=== PATIENT | female | born 1965 | race Caucasian/White ===

== ENCOUNTER → 2017-09-17 10:52 | Outpatient (CLI) | payer OTHER, SELFPAY ==
[2017-09-17 11:50] LABS: Mean Corpuscular HGB Conc 33.4 % (30-36); Mean Corpuscular Hemoglobin 27.8 PG (26-34); Mean Corpuscular Volume 83.2 fL (80-100); Platelet Count 312 X10^3/uL (150-400); Red Blood Cell Count 4.32 X10^6/uL (4.0-5.2); Red Cell Distribution Width 13.9 % (11.6-14.8); White Blood Cell Count 7.2 X10^3/uL (4.5-11.0)
[2017-09-17 12:09] LABS: Erythrocyte Sedimentation Rate 58 MM/HR (0-20)
[2017-09-17 12:13] LABS: Neutrophils Absolute Manual 4968 /uL (3000-5900); Total Cells Counted 100
[2017-09-17 12:14] LABS: Morphology Comment Normal Morphology
[2017-09-17 12:24] LABS: Alanine Aminotransferase 30 IU/L (9-52); Albumin 4.4 g/dL (3.5-5.0); Albumin Globulin Ratio 1.3 (1.0-2.8); Alkaline Phosphatase 73 U/L (38-126); Aspartate Aminotransferase 22 IU/L (14-36); BUN Creatinine Ratio 23.3 (6-22); Bilirubin Total 0.5 mg/dL (0.2-1.3); Blood Urea Nitrogen 14 mg/dL (7-17); Calcium 9.4 mg/dL (8.4-10.2); Carbon Dioxide 27 mmol/L (22-32); Chloride 102 mmol/L (98-107); Estimated Glomerular Filt Rate > 60.0 mL/min (>60); Globulin 3.5 g/dL (1.7-4.1); Glucose 97 mg/dL (70-100); HEMOLYSIS < 15 (0-50); Potassium 4.3 mmol/L (3.4-5.1); Sodium 143 mmol/L (137-145); Total Protein 7.9 g/dL (6.3-8.2); Uric Acid 4.4 mg/dL (2.5-6.2)
[2017-09-17 12:26] LABS: C-Reactive Protein Quant 2.4 mg/dL (<1.0)
[2017-09-17 12:29] LABS: Rheumatoid Factor < 8.6 IU/mL (<12.0)
[2017-09-17 12:54] LABS: Thyroid Stimulating Hormone 0.77 uIU/mL (0.47-4.68)
[2017-09-19 13:59] LABS: Lyme SCREEN w/ Reflex IgG IgM < 0.90 (< 0.90)
== END ==
PROVIDERS: PCP Family Medicine; Visit Provider Physician Assistant
DX: R23.8 Other skin changes (principal); R63.5 Abnormal weight gain; M06.9 Rheumatoid arthritis, unspecified; L08.9 Local infection of the skin and subcutaneous tissue, unspecified; S60.529A Blister (nonthermal) of unspecified hand, initial encounter
CPT/HCPCS: 36415; 80053; 84443; 84481; 84550; 85025; 85651; 86140; 86430; 86618; 87070; 87075; 87205; 87255

== ENCOUNTER 2017-11-19 12:46 | Emergency (ER) | payer OTHER, SELFPAY ==
[2017-11-19 12:50] VITALS: BP 133/88; PULSE 82; RESP 13; TEMP 37.2; O2SAT 99
--- NOTE | 2017-11-19 14:24 | DI.US.S_ITS ---
PROCEDURE: US PERIPH VENOUS LOW EXTREM RT INDICATIONS: RIGHT KNEE PAIN TECHNIQUE: Real-time imaging, as well as color and pulse Doppler interrogation, were performed of the lower extremity deep veins from the inguinal ligament to the popliteal fossa. COMPARISON: None. FINDINGS: The deep veins are normally compressible, and free of intraluminal thrombus. Color and pulse Doppler demonstrate normal phasic intraluminal flow. There is normal augmentation response to distal compression maneuver. IMPRESSION: No DVT found. Note is made of what appears to be a Pleitez's cyst in the posterior knee measuring up to 5.7 x 2.7 x 2.0 cm. Dictated by: Carl Lopez M.D. on 11/19/2017 at 15:10 Approved by: Carl Lopez M.D. on 11/19/2017 at 15:10
[2017-11-19 14:37] VITALS: BP 121/84; PULSE 84; RESP 20; O2SAT 100
--- NOTE | 2017-11-19 15:08 | ED.LOWEXIN ---
HPI - Extremity Injury (Lower) <JOAQUIM Zaragoza - Last Filed: 11/19/17 22:09> General Chief Complaint: Extremity Injury, Lower Stated Complaint: RIGHT KNEE PAIN,THINKS SHE HAS A BLOOD CLOT Time Seen by Provider: 11/19/17 15:07 Source: patient Mode of arrival: wheelchair Limitations: no limitations History of Present Illness HPI Narrative: 52-year-old female history of having a pulmonary embolus and a former smoker here for complaint of pain into her right knee over the past day. She denies any trauma to the area. She reports increased pain with movement of the right knee. She states that she fell asleep on her chair and woke up with the pain. Decreased pain with not moving of the right knee. She denies any other concerns or complaints at this time. She states that she is concerned about having a blood clot MD complaint: knee injury Related Data Home Medications Medication Instructions Recorded Confirmed ibuprofen [Advil] 200 mg PO PRN #0 10/03/16 10/02/17 buprenorphine HCl 8 mg sublingual 8 mg SL QID tab 07/24/17 11/19/17 tablet Allergies Allergy/AdvReac Type Severity Reaction Status Date / Time pregabalin [PREGABALIN] Allergy Severe BLOOD CLOT Verified 10/23/17 10:55 IN LUNG AND LEG Review of Systems <JOAQUIM Zaragoza - Last Filed: 11/19/17 22:09> Constitutional Denies chills, Denies fever(s), Denies lethargy and Denies weakness Eyes Denies change in vision, Denies eye discharge, Denies irritation and Denies loss of vision Cardiovascular Denies chest pain, Denies irregular heart rhythm, Denies lightheadedness, Denies palpitations, Denies dyspnea, Denies dyspnea on exertion and Denies orthopnea Respiratory Denies cough, Denies dyspnea, Denies dyspnea on exertion and Denies wheezing Gastrointestinal Gastrointestinal: Denies abdominal pain, Denies change in bowel habits, Denies diarrhea, Denies nausea and Denies vomiting Genitourinary Denies hematuria, Denies flank pain, Denies urinary incontinence and Denies urinary urgency Musculoskeletal Comments: Right knee pain Integumentary/Breasts Denies pruritus, Denies erythema, Denies rash and Denies wounds Neurologic Denies loss of vision and Denies weakness Endocrine Denies palpitations Allergic/Immunologic Denies wheezing Exam <JOAQUIM Zaragoza - Last Filed: 11/19/17 22:09> Initial Vital Signs Initial Vital Signs: Vital Signs Temperature 99 F 11/19/17 12:50 Pulse Rate 82 11/19/17 12:50 Respiratory Rate 13 11/19/17 12:50 Blood Pressure 133/88 H 11/19/17 12:50 Pulse Oximetry 99 11/19/17 12:50 Const General: cooperative and well developed Nutritional Appearance: well nourished Orientation: alert, awake, oriented x3 and not confused [facility] Mouth: oral mucosae normal and moist mucous membranes Eyes Conjunctivae: conjunctivae normal Sclera: sclerae normal Pupils: PERRL EOM: EOM intact bilaterally Resp Effort & Inspection: normal respiratory effort, able to speak in complete sentences, no respiratory distress and no use of accessory muscles Auscultation: clear to auscultation bilaterally, no rales, no rhonchi and no wheezes Cardio Rate: regular rate Rhythm: regular rhythm Heart Sounds: no click, no gallops, no murmurs and no rubs Pulses: normal peripheral pulses Skin General: no rashes or lesions noted, No jaundice and No petechiae Neuro General: alert, oriented x3, gait normal and no focal motor deficits Speech: speech normal Extrem Other: Right knee with no deformities. No erythema. No swelling. No signs of trauma. Patient does have range of motion to the right knee although it is painful with flexion. Negative anterior posterior drawer sign. Negative varus and valgus stress test. Distal sensation is intact. Distal range of motion is intact. Distal pulses are intact <Bety Winters DO - Last Filed: 11/20/17 11:24> Initial Vital Signs Initial Vital Signs: Vital Signs Temperature 99 F 11/19/17 12:50 Pulse Rate 82 11/19/17 12:50 Respiratory Rate 13 11/19/17 12:50 Blood Pressure 133/88 H 11/19/17 12:50 Pulse Oximetry 99 11/19/17 12:50 Course <JOAQUIM Zaragoza - Last Filed: 11/19/17 22:09> Orders Ordered: Discontinued Medications Ibuprofen (Advil) 400 mg PO NOW ONE Stop: 11/19/17 15:57 Last Admin: 11/19/17 16:01 Dose: 400 mg Vital Signs - 8 hr 11/19/17 14:37 11/19/17 17:22 Pulse Rate 84 78 Respiratory Rate 20 20 Blood Pressure 153/84 H Blood Pressure [Right Arm] 121/84 H Pulse Oximetry 100 98 <Bety Winters DO - Last Filed: 11/20/17 11:24> Orders Ordered: Discontinued Medications Ibuprofen (Advil) 400 mg PO NOW ONE Stop: 11/19/17 15:57 Last Admin: 11/19/17 16:01 Dose: 400 mg Vital Signs - 8 hr 11/19/17 14:37 11/19/17 17:22 Pulse Rate 84 78 Respiratory Rate 20 20 Blood Pressure 153/84 H Blood Pressure [Right Arm] 121/84 H Pulse Oximetry 100 98 MDM - Extremity Injury (Lower) <JOAQUIM Zaragoza - Last Filed: 11/19/17 22:09> Imaging Data Right knee: Radiologist's impression: [address] [address] XRay Report Signed Patient: Ines Martinez MR#: [id number] : 1965 Acct:[id number] Age/Sex: 52 / F Date of Service: 11/19/17 Loc: ED Accession Number: [id number] Procedure: XR knee RT 3V Ordering Provider: Mitch Trinidad PROCEDURE: XR KNEE RT 3V INDICATIONS: Pain with motion of right knee TECHNIQUE: 3 views of the knee were acquired. COMPARISON: None. FINDINGS: Bones: No fractures or dislocations but there is mild subluxation of the patella laterally, at the trochlear groove.. No suspicious bony lesions. Soft tissues: Small suprapatellar joint effusion. No suspicious soft tissue calcifications. IMPRESSION: Mild subluxation of the patella laterally at the trochlear groove, which could represent evidence of trauma but reportedly no trauma has occurred. Small joint effusion. Depending on the clinical status followup by MRI scanning for internal derangement may become necessary. Dictated by: Carl Lopez M.D. on 11/19/2017 at 16:26 Approved by: Carl Lopez M.D. on 11/19/2017 at 16:27 Venous US: Radiologist's impression: [address] [address] Ultrasound Report Signed Patient: Ines Martinez MR#: [id number] : 1965 Acct:[id number] Age/Sex: 52 / F Date of Service: 11/19/17 Loc: ED Accession Number: [id number] Procedure: US periph venous low extrem rt Ordering Provider: Bety Winters D.O. PROCEDURE: US PERIPH VENOUS LOW EXTREM RT INDICATIONS: RIGHT KNEE PAIN TECHNIQUE: Real-time imaging, as well as color and pulse Doppler interrogation, were performed of the lower extremity deep veins from the inguinal ligament to the popliteal fossa. COMPARISON: None. FINDINGS: The deep veins are normally compressible, and free of intraluminal thrombus. Color and pulse Doppler demonstrate normal phasic intraluminal flow. There is normal augmentation response to distal compression maneuver. IMPRESSION: No DVT found. Note is made of what appears to be a Pleitez's cyst in the posterior knee measuring up to 5.7 x 2.7 x 2.0 cm. Dictated by: Carl Lopez M.D. on 11/19/2017 at 15:10 Approved by: Carl Lopez M.D. on 11/19/2017 at 15:10 [facility] Narrative Medical decision making narrative: Venous ultrasound was obtained of the right lower extremity is negative for any DVTs however does show a Pleitez cyst to the right knee.. X-ray of the right knee was obtained and it shows mild subluxation of the patella laterally and small joint effusion. Signs and symptoms presents as right knee sprain. Differential of Pleitez cyst causing the discomfort. She is placed in knee immobilizer for comfort and support along with crutches.. MRI is recommended if continued pain into the right knee. She is to follow up with her primary care provider in the next few days for re-evaluation. [id number] ibuprofen as needed for any discomfort. For any worsening symptoms return emergency room. Discharge Plan Departure Patient Disposition: Home Clinical Impression: Acute pain of right knee Discharge Date/Time: 11/19/17 17:24 Interventions: ED Discharge Assessment Last Done: 11/19/17 17:22 Instructions: DI for Knee Pain Activity Restrictions/Additional Instructions: Ultrasound of the right leg was obtained and was negative for any blood clots. It does show the to have a Pleitez cyst to right knee. X-ray the right knee was obtained and does show some small joint effusion. Signs and symptoms present as a sprain 2 year right knee. You have been placed and crutches and a knee brace use as directed. Follow up with your primary care provider in the next couple of days for re-evaluation. If continued pain recommend MRI of the right knee for further evaluation. Use [id number] ibuprofen as needed for any discomfort. For any worsening symptoms return to the emergency room. Prescriptions: No Action buprenorphine HCl 8 mg tablet, sublingual 8 mg SL QID RF: 0 ibuprofen [Advil] 200 MG tablet 200 mg PO PRN (Reason: Fever Or Pain) Qty: 0 RF: 0 Referrals: Arleen Brice DO [Primary Care Provider] - <Bety Winters DO - Last Filed: 11/20/17 11:24> Cosign ED Attending Coschadature Attestation: I was immediately available in the department for consultation. Documentation has been reviewed. I agree with assessment and plan.
--- NOTE | 2017-11-19 15:55 | DI.RAD.S_ITS ---
PROCEDURE: XR KNEE RT 3V INDICATIONS: Pain with motion of right knee TECHNIQUE: 3 views of the knee were acquired. COMPARISON: None. FINDINGS: Bones: No fractures or dislocations but there is mild subluxation of the patella laterally, at the trochlear groove.. No suspicious bony lesions. Soft tissues: Small suprapatellar joint effusion. No suspicious soft tissue calcifications. IMPRESSION: Mild subluxation of the patella laterally at the trochlear groove, which could represent evidence of trauma but reportedly no trauma has occurred. Small joint effusion. Depending on the clinical status followup by MRI scanning for internal derangement may become necessary. Dictated by: Carl Lopez M.D. on 11/19/2017 at 16:26 Approved by: Carl Lopez M.D. on 11/19/2017 at 16:27
[2017-11-19] MEDS: IBUPROFEN 400 MG TABLET PO (16:01)
[2017-11-19 17:22] VITALS: BP 153/84; PULSE 78; RESP 20; O2SAT 98
== END 2017-11-19 17:24 | disposition home or self-care (01) ==
PROVIDERS: Emergency Provider Nurse Practitioner Family; PCP Family Medicine
DX: M25.561 Pain in right knee (principal)
CPT/HCPCS: 73562; 93971; 99283

== ENCOUNTER → 2019-05-07 09:39 | Outpatient (CLI) | payer OTHER, SELFPAY ==
[2019-05-07 10:13] LABS: Add Manual Diff / Slide Review NO; Basophils Absolute Auto 0 /uL (0-100); Basophils Percent Auto 0.7 % (0-2); Eosinophils Absolute Auto 200 /uL (0-450); Eosinophils Percent Auto 3.3 % (2-4); Hematocrit 36.1 % (36-46); Hemoglobin 12.4 g/dL (12.0-16.0); Lymphocytes Absolute Auto 900 /uL (1100-4500); Lymphocytes Percent Auto 17.4 % (25-40); Mean Corpuscular HGB Conc 34.4 % (30-36); Mean Corpuscular Hemoglobin 28.5 PG (26-34); Monocytes Absolute Auto 500 /uL (0-900); Neutrophils Absolute Auto 3700 /uL (1500-7000); Neutrophils Percent Auto 68.6 % (50-75); Platelet Count 229 X10^3/uL (150-400); Red Blood Cell Count 4.35 X10^6/uL (4.0-5.2); White Blood Cell Count 5.3 X10^3/uL (4.5-11.0)
[2019-05-07 11:18] LABS: Alanine Aminotransferase 14 IU/L (<35); Albumin 4.1 g/dL (3.5-5.0); Albumin Globulin Ratio 1.3 (1.0-2.8); Alkaline Phosphatase 62 U/L (38-126); Aspartate Aminotransferase 20 IU/L (14-36); Bilirubin Total 0.4 mg/dL (0.2-1.3); Blood Urea Nitrogen 21 mg/dL (7-17); Calcium 9.3 mg/dL (8.4-10.2); Carbon Dioxide 27 mmol/L (22-32); Chloride 103 mmol/L (98-107); Cholesterol 153 mg/dL (140-199); Estimated Glomerular Filt Rate > 60.0 mL/min (>60); Globulin 3.2 g/dL (1.7-4.1); Glucose 104 mg/dL (70-100); HDL Cholesterol 47 mg/dL (40-60); HEMOLYSIS < 15 (0-50); LDL Cholesterol Calculated 82 mg/dL (<100); Potassium 3.9 mmol/L (3.4-5.1); Sodium 140 mmol/L (137-145); Total Protein 7.3 g/dL (6.3-8.2); Triglycerides 119 mg/dL (35-150)
[2019-05-07 11:46] LABS: Thyroid Stimulating Hormone 0.88 uIU/mL (0.47-4.68)
== END ==
PROVIDERS: Referring Provider Family Medicine; Visit Provider Family Medicine
DX: M06.9 Rheumatoid arthritis, unspecified (principal); N93.8 Other specified abnormal uterine and vaginal bleeding; R10.13 Epigastric pain
CPT/HCPCS: 36415; 80053; 80061; 83001; 84443; 85025

== ENCOUNTER → 2019-08-06 13:05 | Outpatient (CLI) | payer OTHER, SELFPAY ==
--- NOTE | 2019-08-06 13:06 | DI.US.S_ITS ---
PROCEDURE: US PERIPH VENOUS LOW EXTREM LT INDICATIONS: FOOT AND ANKLE EDEMA. HX DVT TECHNIQUE: Real-time imaging, as well as color and pulse Doppler interrogation, were performed of the lower extremity deep veins from the inguinal ligament to the popliteal fossa. COMPARISON: None. FINDINGS: The common femoral, femoral and popliteal veins are normally compressible, and free of intraluminal thrombus. Color and pulse Doppler demonstrate normal phasic intraluminal flow. There is normal augmentation response to distal compression maneuver. IMPRESSION: No DVT found involving the left leg. Incidental note is made of a Pleitez's cyst behind the left knee, measuring approximately 1.0 x 2.6 x 2.7 cm. Dictated by: Carl Lopez M.D. on 08/06/2019 at 13:47 Approved by: Carl Lopez M.D. on 08/06/2019 at 13:48
== END ==
PROVIDERS: Referring Provider Family Medicine; Visit Provider Family Medicine
DX: R60.0 Localized edema (principal); M71.22 Synovial cyst of popliteal space [Baker], left knee; Z86.718 Personal history of other venous thrombosis and embolism
CPT/HCPCS: 93971

== ENCOUNTER → 2019-09-29 09:35 | Outpatient (CLI) | payer OTHER, SELFPAY ==
--- NOTE | 2019-09-29 09:36 | DI.MRI.S_ITS ---
PROCEDURE: MR CERVICAL SPINE WO CON INDICATIONS: hx of C7 fx, R arm numbness pain, changes on xrays TECHNIQUE: Noncontrast sagittal T1 spin echo and T2 fast spin echo, sagittal STIR, foraminal oblique sagittal T2 fast spin echo, and axial gradient echo or T2 fast spin echo through the cervical spine. COMPARISON: None. FINDINGS: Image quality: Excellent. Alignment and Curvature: There is normal bony alignment. Bone Marrow: Marrow demonstrates normal overall signal. Anterior wedging of the C7 vertebral body compatible with reported history of remote compression fracture. Spinal Cord: Visualized spinal cord has normal size and signal. No cerebellar tonsillar herniation. Paraspinous Soft Tissues: No paravertebral masses. Prevertebral soft tissues are normal in thickness. C2-C3: Loss of disc signal. No central stenosis. No neural foraminal narrowing. No neural compression. C3-C4: Loss of the signal. No central stenosis. No neural foraminal narrowing. No neural compression. C4-C5: Loss of disc signal. Mild, diffuse disc bulge. Mild narrowing of the central canal. Mild right neural foraminal narrowing. No neural compression. C5-C6: Loss of the signal mild loss of disc height. Moderate, diffuse disc bulge. Moderate to severe narrowing of the central canal. Mild bilateral uncovertebral joint hypertrophy. Severe right and moderate left neural foraminal narrowing with compression of the exiting right C6 nerve root. C6-C7: Loss of disc signal. Mild, diffuse disc bulge. Moderate narrowing of the central canal. Mild bilateral uncovertebral joint retrope. Moderate bilateral neural foraminal narrowing. No neural compression. C7-T1: Loss of the signal. Minimal, diffuse disc bulge. No central stenosis. No neural foraminal narrowing. No neural compression. IMPRESSION: 1. Multilevel degenerative disc disease. 2. Multilevel uncovertebral hypertrophy. 3. Moderate to severe C5-C6 central canal narrowing. Moderate C6-C7 central canal narrowing. Mild C4-C5 central canal narrowing. 4. Severe right and moderate left C5-C6 neural foraminal narrowing. Moderate bilateral C6-C7 neural foraminal narrowing. Mild right C4-C5 neural foraminal narrowing. 5. Compression of the exiting right C6 nerve root secondary to right C5-C6 neural foraminal narrowing. Dictated by: Mickie Thayer MD, PhD on 09/29/2019 at 11:40 Approved by: Mickie Thayer MD, PhD on 09/29/2019 at 11:44
== END ==
PROVIDERS: PCP Family Medicine; Referring Provider Family Medicine; Visit Provider Family Medicine
DX: M50.321 Other cervical disc degeneration at C4-C5 level (principal); M48.02 Spinal stenosis, cervical region; M79.2 Neuralgia and neuritis, unspecified; R20.0 Anesthesia of skin; Z87.81 Personal history of (healed) traumatic fracture
CPT/HCPCS: 72141

== ENCOUNTER → 2019-12-27 10:11 | Outpatient (CLI) | payer OTHER, SELFPAY ==
[2019-12-28 22:40] LABS: COVID19 Sendout Not Detected (Not Detect)
== END ==
PROVIDERS: PCP Family Medicine; Visit Provider Physician Assistant
DX: Z11.59 Encounter for screening for other viral diseases (principal)
CPT/HCPCS: 87635

== ENCOUNTER 2019-12-30 09:17 | Outpatient (CLI) | payer OTHER, SELFPAY ==
[2019-12-30] VITALS (10 sets, daily range): BP systolic 116–153; BP diastolic 58–89; PULSE 74–84; RESP 11–26; TEMP 36.2; O2SAT 97–100
--- NOTE | 2019-12-30 09:23 | DI.RAD.S_ITS ---
PROCEDURE: PAIN C/T INTERLAMINAR INJECT INDICATIONS: CERIVAL STENOSIS COMPARISON: [facility], CR, XR CERVICAL SPINE WITH OBLIQUES, 09/18/2019, 10:09. [facility], MR, MR CERVICAL SPINE WO CON, 09/29/2019, 10:05. FINDINGS: Fluoroscopic spot filming was performed to verify placement of a spinal needle at the C6-C7 level on the right, as labeled on the films. Appropriate location(s) of the needle tip(s) was confirmed by injection of iodinated contrast. IMPRESSION: Intraprocedural examination within normal limits. Dictated by: Michael Marvin M.D. on 12/30/2019 at 10:02 Approved by: Michael Marvin M.D. on 12/30/2019 at 10:02
[2019-12-30] MEDS: fentaNYL 100 MCG/2 ML INJ 50 MCG IV (10:13)
[2019-12-30] MEDS: MIDAZOLAM 5 MG/5 ML VIAL IV (10:18)
[2019-12-30] MEDS: IOPAMIDOL 15 ML VIAL 3 ML INJ (10:20)
[2019-12-30] MEDS: DEXAMETHASONE 10 MG/ML VIAL 30 MG INJ (10:28)
--- NOTE | 2019-12-30 10:33 | P.PCN_ITS ---
Date/Time/Diagnoses Date of procedure: 12/30/19 Time of procedure: 10:33 Pre-procedure diagnosis: 1. CERVICAL STENOSIS, 2. CERVICAL HNP WITH UPPER EXTREMITY RADICULAR FEATURES Post-procedure diagnosis: same Procedure Notes Procedure: 1. FLUORSCOPICALLY GUIDED CONTRAST CONTROLLED INTERLAMINAR EPIDURAL STEROID INJECTION - C6/7 TL PATRICIA Indications: Ines is referred by for treatment of Cervical HNP with Upper Extremity Paresthesias. Physician: Mike Summers Total Fluoroscopy time (seconds): 40 Total sedation minutes: 17 Complications: none Procedure in detail & Post-procedure care: FINDINGS Cervical Stenosis due to disc deterioration and nerve root irritation and nerve root irritation DESCRIPTION OF PROCEDURE Fluoroscopically guided, contrast-controlled C6/7 translaminar epidural steroid injection with conscious sedation. Following review of allergy and review of potential side effects and complications, including, but not necessarily limited to, infection, allergic reaction, local tissue breakdown, temporary as well as permanent nerve injury, stroke, paralysis, and possible , the patient indicated that patient understood and agreed to proceed. An informed consent document was signed by the patient, witnessed by a nurse, and placed in the patient's chart. Additionally, other treatment options including modalities, medications, and physical therapy were reviewed with the patient. After review of previous anaesthesic history and IV conscious sedation the patient was deemed safe to proceed with today?s procedure with IV conscious sedation as ASA class II designation. Safety time-out was performed to confirm patient ID, procedure to be performed and site of procedure. IV sedation was accomplished with a combination of 3mg of Versed and 50mcg of Fentanyl administered by the RN after DO order, titrated to patient comfort during the course of the procedure while the patient remained responsive to all verbal commands. In the prone position, following sterile prep and drape of the cervical region, the C6/7 translaminar space was identified fluoroscopically. The skin was anesthetized via a 25-gauge 1.5-inch needle with 1% lidocaine solution. At this point, a 25-gauge, 2.5-inch short bevel spinal needle was atraumatically introduced and advanced under fluoroscopic guidance into epidural space at the C6/7 translaminar space. Depth was confirmed on lateral view. Radiological data, including multiple fluoroscopic views of the cervical spine, reveal a spinal needle at the C6/7 translaminar space. Lateral views then show placement of the needle in the epidural space. Subsequent views show contrast material flowing superiorly and inferiorly in the epidural space. DSA fluoroscopy with live contrast injection, once again, confirmed no vascular or intrathecal uptake. At this point, using loss of resistance technique with saline and air, the epidural space was entered. Following negative aspiration, injection of appro ximately 1.5 cc of Isovue-200 with live fluoroscopy in the AP view confirmed epidural flow in the epidural space without vascular or intrathecal uptake observed. Subsequently, a test dose of 1 cc of 1% lidocaine solution was injected and patient was observed for two minutes without signs or symptoms of complications, including abdominal pain, shortness of breath, bilateral upper or lower extremity weakness, nausea and vomiting, prior to steroid injection. At this point, 2cc or 20mg of dexamethasone was then injected without incident. The patient tolerated the procedure well without signs or symptoms of complications prior to being transferred to the recovery area for further monitoring, The patient was then transferred to the recovery area where they were observed for an appropriate period of time after the injection. The patient reported a VAS score of 6 prior to the procedure and a post-procedure VAS of 0. POST OP INSTRUCTIONS The patient was provided a Pain Log to continue to record their response to the target-specific procedure prior to follow-up visit with the referring provider. Additionally, specific post-injection care instructions and a contact number to our office were provided if concerns arise regarding possible complications associated with the procedure are suspected.
== END 2019-12-30 10:50 | disposition home or self-care (01) ==
LOC: RAD 09:22
PROVIDERS: PCP Family Medicine; Referring Provider Physical Medicine & Rehabilitation; Visit Provider Physical Medicine & Rehabilitation
DX: M48.02 Spinal stenosis, cervical region (principal); M50.123 Cervical disc disorder at C6-C7 level with radiculopathy
CPT/HCPCS: 62321; 99152; J1100; J2250; J3010

== ENCOUNTER → 2020-04-27 12:21 | Outpatient (CLI) | payer OTHER, SELFPAY ==
[2020-04-27 14:44] LABS: COVID19 -Nasal RAPID Negative (Negative)
== END ==
PROVIDERS: PCP Family Medicine; Visit Provider Physical Medicine & Rehabilitation
DX: Z20.822 Contact with and (suspected) exposure to COVID-19 (principal)
CPT/HCPCS: 87635; C9803

== ENCOUNTER 2020-04-29 09:29 | Outpatient (CLI) | payer OTHER, SELFPAY ==
[2020-04-29] VITALS (9 sets, daily range): BP systolic 107–125; BP diastolic 56–81; PULSE 79–91; RESP 12–22; TEMP 37.4; O2SAT 94–100
--- NOTE | 2020-04-29 09:29 | DI.RAD.S_ITS ---
PROCEDURE: PAIN C/T FACET INJ/BLK 1ST L INDICATIONS: SPINAL STENOSIS COMPARISON: None. FINDINGS: Fluoroscopic spot filming was performed to verify placement of spinal needles at the right C5-C6 and C6-C7 level(s), as labeled on the films. Appropriate location(s) of the needle tip(s) was confirmed by injection of iodinated contrast. IMPRESSION: Injection access needles identified at the level of the right C5-C6 and right C6-C7 facet joints. Dictated by: Mickie Thayer MD, PhD on 04/29/2020 at 11:18 Approved by: Mickie Thayer MD, PhD on 04/29/2020 at 11:19
[2020-04-29] MEDS: MIDAZOLAM 5 MG/5 ML VIAL IV (10:27)
[2020-04-29] MEDS: fentaNYL 100 MCG/2 ML INJ 50 MCG IV (10:27)
[2020-04-29] MEDS: BUPIVACAINE 0.5% (PF) VIAL 2 ML INJ (10:32)
[2020-04-29] MEDS: IOPAMIDOL 15 ML VIAL 3 ML INJ (10:32)
[2020-04-29] MEDS: DEXAMETHASONE 10 MG/ML VIAL 20 MG INJ (10:33)
--- NOTE | 2020-04-29 10:39 | P.PCN_ITS ---
Date/Time/Diagnoses Date of procedure: 04/29/20 Time of procedure: 10:40 Pre-procedure diagnosis: 1. FACET ARTHROPATHY 2. AXIAL NECK PAIN Post-procedure diagnosis: same Procedure Notes Procedure: 1. FLUOROSCOPICALLY GUIDED, CONTRAST-CONTROLLED RIGHT C5/6 AND C6/7 FACET JOINT INJECTIONS WITH CONSCIOUS SEDATION. Indications: Ines is referred by Dr. Ferguson for treatment of Axial Neck Pain Physician: Mike Summers Total Fluoroscopy time (seconds): 7 Total sedation minutes: 10 Complications: none Procedure in detail & Post-procedure care: DESCRIPTION OF PROCEDURE Fluoroscopically guided, contrast-controlled right C5/6 and C6/7 facet joint injections with conscious sedation. Following review of allergy and review of potential side effects and complications, including, but not necessarily limited to, infection, allergic reaction, local tissue breakdown, stroke, temporary or permanent nerve injury and paralysis, the patient indicated that the patient understood and agreed to proceed. An informed consent document was signed by the patient, witnessed by a nurse, and placed in the patient's chart. Additionally, other treatment options including medications, modalities, and physical therapy were reviewed with the patient. After review of previous anaesthesic history and IV conscious sedation the patient was deemed safe to proceed with today?s procedure with IV conscious sedation as ASA class II designation. Safety time-out was performed to confirm patient ID, procedure to be performed and site of procedure. IV sedation was accomplished with a combination of 4mg of Versed and 50mcg of Fentanyl was administered by the RN after DO order, titrated to patient comfort during the course of the procedure while the patient remained responsive to all verbal commands In the prone position, following sterile prep and drape of the cervical spine region, the posterior aspect of the right C5/6 and C6/7 facet joints were identified fluoroscopically. The skin was anesthetized via a 25-gauge 1.5-inch needle with 1% lidocaine solution into the corresponding facet joints. At this point, a 25-gauge 2.5-inch spinal needle was atraumatically introduced and advanced under fluoroscopic guidance into the corresponding facet joints. Following negative aspiration, injections of approximately 0.2-cc of Isovue 200 confirmed interarticular placement without vascular uptake. At this point, a total of 1 cc including 0.5 cc or 5 mg of dexamethasone combined with 0.5 cc of 1% lidocaine solution was injected without complication into each of the corresponding facet joints. The procedure tolerated the procedure well without signs or symptoms of complications prior to transfer to the recovery area continued monitoring without incident. The patient was then transferred to the recovery area where they were observed for an appropriate period of time after the injection. The patient reported a VAS score of 7 prior to the procedure and a post- procedure VAS of 0. POST OP INSTRUCTIONS They were provided a Pain Log to continue to record their response to the target-specific procedure prior to their follow-up visit with their referring physician. Additionally, specific post-injection care instructions and a contact number to our office were provided if concerns arise regarding possible complications associated with the procedure are suspected.
== END 2020-04-29 11:15 | disposition home or self-care (01) ==
LOC: RAD 09:29
PROVIDERS: PCP Family Medicine; Referring Provider Family Medicine; Visit Provider Physical Medicine & Rehabilitation
DX: M47.812 Spondylosis without myelopathy or radiculopathy, cervical region (principal); M54.2 Cervicalgia
CPT/HCPCS: 64490; 64491; 99152; J1100; J2250; J3010

== ENCOUNTER → 2020-06-11 09:51 | Outpatient (CLI) | payer OTHER, SELFPAY ==
--- NOTE | 2020-06-11 09:52 | DI.RAD.S_ITS ---
PROCEDURE: XR CERVICAL SPINE 4V OR 5V INDICATIONS: Chronic pain TECHNIQUE: 5 views of the cervical spine acquired. COMPARISON: None. FINDINGS: Bones: No fractures or dislocations to the T2 level. There is straightening normal cervical spine curvature. Mild to moderate C5-C6 degenerative disc disease. Mild C 6-C7 and C7-T1 degenerative disc disease. Mild to moderate right and mild left C5-C6 neural foraminal narrowing secondary to right uncovertebral joint hypertrophy. Oblique images demonstrate no bony foraminal stenoses. Soft tissues: No prevertebral soft tissue swelling. IMPRESSION: 1. Multilevel degenerative disc disease. 2. Mild to moderate right and mild left C5-C6 neural foraminal narrowing. 3. No fracture. No acute osseous lesion. If symptoms and/or clinical suspicion for pathology persists, evaluation with MRI should be considered for further assessment. Dictated by: Mickie Thayer MD, PhD on 06/11/2020 at 10:13 Approved by: Mickie Thayer MD, PhD on 06/11/2020 at 10:15
== END ==
PROVIDERS: PCP Family Medicine; Referring Provider Physical Medicine & Rehabilitation; Visit Provider Physical Medicine & Rehabilitation
DX: G89.29 Other chronic pain (principal); T14.8XXA Other injury of unspecified body region, initial encounter; R51.9 Headache, unspecified; M99.71 Connective tissue and disc stenosis of intervertebral foramina of cervical region; M54.9 Dorsalgia, unspecified; M54.12 Radiculopathy, cervical region; M47.812 Spondylosis without myelopathy or radiculopathy, cervical region
CPT/HCPCS: 72050

== ENCOUNTER → 2020-11-24 11:49 | Outpatient (CLI) | payer OTHER, SELFPAY ==
--- NOTE | 2020-11-24 11:50 | DI.RAD.S_ITS ---
PROCEDURE: XR CHEST 2V INDICATIONS: abnormal weight loss of >20# TECHNIQUE: 2 views of the chest were acquired. COMPARISON: None. FINDINGS: Surgical changes and devices: Postsurgical changes of the left humerus.. Lungs and pleura: Lungs are clear. No pleural effusions or pneumothorax. Mediastinum: Mediastinal contours are normal. Heart size is normal. Bones and chest wall: No suspicious bony abnormalities. Soft tissues appear unremarkable. IMPRESSION: Negative chest Dictated by: Jose Cheng M.D. on 11/24/2020 at 13:38 Approved by: Jose Cheng M.D. on 11/24/2020 at 13:39
[2020-11-24 13:05] LABS: Add Manual Diff / Slide Review NO; Basophils Absolute Auto 0 /uL (0-100); Eosinophils Absolute Auto 200 /uL (0-450); Eosinophils Percent Auto 6.1 % (2-4); Hematocrit 33.8 % (36-46); Hemoglobin 11.2 g/dL (12.0-16.0); Lymphocytes Absolute Auto 800 /uL (1100-4500); Lymphocytes Percent Auto 29.8 % (25-40); Mean Corpuscular HGB Conc 33.1 % (30-36); Mean Corpuscular Hemoglobin 27.1 PG (26-34); Mean Corpuscular Volume 81.9 fL (80-100); Monocytes Absolute Auto 400 /uL (0-900); Monocytes Percent Auto 14.3 % (3-14); Neutrophils Absolute Auto 1300 /uL (1500-7000); Neutrophils Percent Auto 48.8 % (50-75); Platelet Count 277 X10^3/uL (150-400); Red Blood Cell Count 4.13 X10^6/uL (4.0-5.2); White Blood Cell Count 2.7 X10^3/uL (4.5-11.0)
[2020-11-24 13:44] LABS: Alanine Aminotransferase 9 IU/L (<35); Albumin Globulin Ratio 1.4 (1.0-2.8); Alkaline Phosphatase 65 U/L (38-126); Aspartate Aminotransferase 23 IU/L (14-36); BUN Creatinine Ratio 16.4 (6-22); Bilirubin Total 0.5 mg/dL (0.2-1.3); Blood Urea Nitrogen 9 mg/dL (7-17); C-Reactive Protein Quant 0.7 mg/dL (<1.0); Calcium 9.3 mg/dL (8.4-10.2); Carbon Dioxide 30 mmol/L (22-32); Chloride 103 mmol/L (98-107); Estimated Glomerular Filt Rate > 60.0 mL/min (>60); Globulin 2.8 g/dL (1.7-4.1); Glucose 86 mg/dL (70-100); HEMOLYSIS < 15 (0-50); Potassium 3.5 mmol/L (3.4-5.1); Sodium 140 mmol/L (137-145); Total Protein 6.8 g/dL (6.3-8.2)
[2020-11-24 14:12] LABS: TSH w/ Reflex to FT4 0.41 uIU/mL (0.47-4.68)
[2020-11-24 14:41] LABS: Free T4, Direct Thyroxine 1.23 ng/dL (0.78-2.19)
== END ==
PROVIDERS: PCP Family Medicine; Referring Provider Family Medicine; Visit Provider Family Medicine
DX: R63.4 Abnormal weight loss (principal)
CPT/HCPCS: 36415; 71046; 80053; 84439; 84443; 85025; 86140

== ENCOUNTER → 2020-12-13 09:22 | Outpatient (CLI) | payer OTHER, SELFPAY ==
[2020-12-13 11:01] LABS: Add Manual Diff / Slide Review NO; Basophils Absolute Auto 0 /uL (0-100); Eosinophils Absolute Auto 200 /uL (0-450); Hematocrit 34.7 % (36-46); Hemoglobin 11.2 g/dL (12.0-16.0); Lymphocytes Absolute Auto 500 /uL (1100-4500); Lymphocytes Percent Auto 16.4 % (25-40); Mean Corpuscular HGB Conc 32.4 % (30-36); Mean Corpuscular Hemoglobin 26.8 PG (26-34); Mean Corpuscular Volume 82.6 fL (80-100); Monocytes Absolute Auto 400 /uL (0-900); Monocytes Percent Auto 12.8 % (3-14); Neutrophils Absolute Auto 2100 /uL (1500-7000); Neutrophils Percent Auto 63.8 % (50-75); Platelet Count 194 X10^3/uL (150-400); Red Cell Distribution Width 14.8 % (11.6-14.8); White Blood Cell Count 3.3 X10^3/uL (4.5-11.0)
[2020-12-13 12:59] LABS: Alanine Aminotransferase 13 IU/L (<35); Albumin 4.1 g/dL (3.5-5.0); Albumin Globulin Ratio 1.4 (1.0-2.8); Alkaline Phosphatase 58 U/L (38-126); Aspartate Aminotransferase 25 IU/L (14-36); Bilirubin Total 0.4 mg/dL (0.2-1.3); Blood Urea Nitrogen 14 mg/dL (7-17); Calcium 9.3 mg/dL (8.4-10.2); Carbon Dioxide 31 mmol/L (22-32); Chloride 102 mmol/L (98-107); Estimated Glomerular Filt Rate > 60.0 mL/min (>60); Globulin 2.9 g/dL (1.7-4.1); Glucose 88 mg/dL (70-100); HEMOLYSIS < 15 (0-50); Potassium 4.1 mmol/L (3.4-5.1); Sodium 140 mmol/L (137-145)
== END ==
PROVIDERS: PCP Family Medicine; Referring Provider Internal Medicine Hematology & Oncology; Visit Provider Internal Medicine Hematology & Oncology
DX: L98.2 Febrile neutrophilic dermatosis [Sweet] (principal); D70.9 Neutropenia, unspecified
CPT/HCPCS: 36415; 80053; 85025

== ENCOUNTER → 2020-12-17 09:40 | Outpatient (CLI) | payer OTHER, SELFPAY ==
[2020-12-17 11:38] LABS: COVID19 -Nasal RAPID POSITIVE (Negative)
== END ==
PROVIDERS: PCP Family Medicine; Visit Provider Nurse Practitioner
DX: U07.1 COVID-19 (principal)
CPT/HCPCS: 87635

== ENCOUNTER 2021-02-19 11:30 | Emergency (ER) | payer OTHER, SELFPAY ==
[2021-02-19 12:08] VITALS: BP 183/98; PULSE 72; RESP 16; TEMP 36.7; BMI 20.8
--- NOTE | 2021-02-19 12:40 | ED.DENTAL ---
HPI - Dental/Oral <John Ledezma PA-C - Last Filed: 02/19/21 17:26> General Chief complaint: Dental/Oral Stated complaint: left side facial swelling Time Seen by Provider: 02/19/21 12:22 History of Present Illness HPI Narrative: Patient is a 55-year-old female presenting to the emergency department today for evaluation of left-sided jaw swelling that began 02/16/2021. Patient states that she 1st noticed small amount of swelling the left side of her jaw that has since spread to the left side of her chin. She also notes mild associated pain with swelling. Of note, patient states that she ?has a mouth full of rotten teeth?. She is currently working on attempting to find a dentist. Denies fever, chills, chest pain, shortness of breath, nausea, vomiting, diarrhea, dysuria. No other concerns voiced at this time. Related Data Home Medications Medication Instructions Recorded Confirmed buprenorphine HCl 8 mg sublingual 8 mg SL QID tab 07/24/17 06/14/20 tablet cyclobenzaprine 10 mg tablet 10 mg PO BEDTIME 11/12/19 06/14/20 leflunomide 20 mg tablet mg PO DAILY tab 03/29/20 06/14/20 aspirin 81 mg tablet,delayed 81 mg PO DAILY 11/23/20 11/23/20 release gabapentin 300 mg capsule 300 mg PO BID cap 01/17/21 01/17/21 oxycodone 30 mg tablet 30 mg PO DAILY PRN tab 01/17/21 01/17/21 Previous Rx's Medication Instructions Recorded hydrochlorothiazide 12.5 mg tablet See Rx Instructions .ROUTE 07/21/20 .COMPLEX #30 tab duloxetine 20 mg capsule,delayed 20 mg PO BID #180 cap 12/13/20 release amoxicillin 500 mg capsule 500 mg PO TID #21 cap 02/19/21 Allergies Allergy/AdvReac Type Severity Reaction Status Date / Time pregabalin [PREGABALIN] AdvReac Severe BLOOD CLOT Verified 01/17/21 09:15 IN LUNG AND LEG Review of Systems <John Ledezma PA-C - Last Filed: 02/19/21 17:26> Constitutional Constitutional: Denies chills, Denies fatigue, Denies fever(s), Denies frequent falls, Denies lethargy and Denies weakness Eyes Eyes: Denies change in vision, Denies eye discharge, Denies irritation and Denies loss of vision ENT Ears, Nose, Mouth, and Throat: Denies change in voice, Reports dental pain, Denies dizziness, Denies neck pain, Denies sore throat, Denies throat swelling and Reports other (Swelling over the left jaw and chin) Cardiovascular Cardiovascular: Denies chest pain, Denies irregular heart rhythm, Denies lightheadedness, Denies palpitations, Denies dyspnea, Denies dyspnea on exertion and Denies orthopnea Respiratory Respiratory: Denies cough, Denies dyspnea, Denies dyspnea on exertion and Denies wheezing Gastrointestinal Gastrointestinal: Denies abdominal pain, Denies change in bowel habits, Denies diarrhea, Denies nausea and Denies vomiting Genitourinary Genitourinary: Denies hematuria, Denies flank pain, Denies urinary incontinence and Denies urinary urgency Musculoskeletal Musculoskeletal: Denies neck pain, Denies numbness and Denies tingling Neurologic Neurologic: Denies behavioral changes, Denies confusion, Denies dizziness, Denies frequent falls, Denies loss of vision, Denies numbness, Denies tingling and Denies weakness Psychiatric Psychiatric: Denies behavioral changes and Denies confusion Endocrine Endocrine: Denies fatigue and Denies palpitations Allergic/Immunologic Allergic/Immunologic: Denies urticaria, Denies throat swelling and Denies wheezing Patient History <John Ledezma PA-C - Last Filed: 02/19/21 17:26> Medical History Anxiety (Unknown) Cervical radiculopathy Cervicogenic headache Chronic back pain (Unknown) Depression (Unknown) Essential hypertension Fibromyalgia (Unknown) Fractures (1985) HNP (herniated nucleus pulposus), cervical Hx pulmonary embolism (~1987) Migraines (Unknown) Osteoarthritis (Unknown) Recurrent sinusitis (Unknown) Rheumatoid arthritis (Unknown) Surgical History History of back surgery (~1999) History of left knee surgery (~1981) History of surgery on arm (~1982) Family History Mother Hypertension Grandfather Diabetes mellitus Grandmother No problems noted. Social History marital status: number of children: 3 education level: college seatbelt use: always Smoking Status: Former smoker Tobacco: How many years used: 30 alcohol intake: former substance use type: does not use Type(s) of exercise: none Smoking Status: Former smoker Exam <John Ledezma PA-C - Last Filed: 02/19/21 17:26> Narrative Exam Narrative: GENERAL: 55 year old patient appears stated age. Well-developed patient, in no acutedistress. HEAD: Atraumatic. Normocephalic. EYES: Pupils equal round and reactive. Extraocular motions intact. No scleral icterus. No injection or drainage. ENT: Nose without bleeding, purulent drainage. Throat without erythema, tonsillar hypertrophy or exudate. Airway patent. Uvula midline. Numerous dental caries and dental decay noted. No appreciable abscess formation on exam. Swelling over the left side of the jaw, left cheek, and left chin. NECK: Trachea midline. Non tender CARDIOVASCULAR: Regular rate and rhythm without murmurs, gallops, or rubs. RESPIRATORY: Clear to auscultation. Breath sounds equal bilaterally. No wheezes, rales, or rhonchi. GASTROINTESTINAL: Abdomen soft, non-tender, nondistended. EXTREMITIES: No edema or joint tenderness. BACK: Nontender without deformity or crepitance. No flank tenderness. NEURO: AOx3. SKIN: No rash or erythema of visible areas Initial Vital Signs Initial Vital Signs: Vital Signs Temperature 98.0 F 02/19/21 12:08 Pulse Rate 72 02/19/21 12:08 Respiratory Rate 16 02/19/21 12:08 Blood Pressure 183/98 H 02/19/21 12:08 <Kane Sharma DO - Last Filed: 02/19/21 17:28> Initial Vital Signs Initial Vital Signs: Vital Signs Temperature 98.0 F 02/19/21 12:08 Pulse Rate 72 02/19/21 12:08 Respiratory Rate 16 02/19/21 12:08 Blood Pressure 183/98 H 02/19/21 12:08 Course <John Ledezma PA-C - Last Filed: 02/19/21 17:26> Course Course Narrative: Patient has been taking leftover amoxicillin at home from previous dental infection. Vital Signs Vital signs: Vital Signs - 8 hr 02/19/21 12:08 Temperature 98.0 F Pulse Rate 72 Respiratory Rate 16 Blood Pressure 183/98 H <Kane Sharma DO - Last Filed: 02/19/21 17:28> Vital Signs Vital signs: Vital Signs - 8 hr 02/19/21 12:08 Temperature 98.0 F Pulse Rate 72 Respiratory Rate 16 Blood Pressure 183/98 H MDM - Dental/Oral <John Ledezma PA-C - Last Filed: 02/19/21 17:26> MDM Narrative Medical decision making narrative: Patient is a 55-year-old female presenting to the emergency department today for evaluation of left-sided jaw swelling that began 02/16/2021. To consider dental abscess versus retropharyngeal abscess versus peritonsillar abscess versus dental caries versus dental decay. Overall physical examination and history are reassuring. Patient is afebrile in the emergency department is not displaying systemic symptoms. Additionally, no appreciable abscess formation is noted when examining the throat and oral mucosa. Additionally, patient is not having difficulty swallowing or breathing. At this time patient feels comfortable being discharged home with a prescription for antibiotics. Discussed strict return precautions with the patient prior to discharge. Discharge Plan Departure Patient Disposition: Home Clinical Impression: Dental caries Instructions: Tooth Decay, DI for Dental Pain Activity Restrictions/Additional Instructions: *You have been diagnosed with dental caries, tooth decay *What to do: *Please continue to take your regular medications as directed. [X] New medication prescriptions sent to your pharmacy: [facility] -amoxicillin [ ] New medication written as a paper prescription [ ] No new medications given *Please follow up with your primary care provider in 2-3 days, call for an appointment. Let them know you were seen in the Emergency Department and that we ask that you be seen in follow up. We will electronically transmit a record of today's note if your PCP is in our system. *Please follow-up with your dentist for the earliest available appointment. *If you do not have a primary care provider please contact the [facility] Resource line at [phone]. They will ask some questions about your medical history and help get you set up with a doctor in the community. *Return to Emergency Department if you should have any new, worsening or concerning symptoms, such as fever greater than 101 F, shaking chills, worsening pain, worsening swelling, swelling that is spreading, persistent vomiting or other bothersome symptoms. Prescriptions: New amoxicillin 500 mg capsule 500 mg PO TID Qty: 21 0RF No Action buprenorphine HCl 8 mg tablet, sublingual 8 mg SL QID 0RF aspirin 81 mg tablet,delayed release (DR/EC) 81 mg PO DAILY 0RF hydrochlorothiazide 12.5 mg tablet See Rx Instructions .ROUTE .COMPLEX Qty: 30 5RF Dose Instruction: TAKE 1 TABLET BY MOUTH DAILY Rx Instructions: TAKE 1 TABLET BY MOUTH DAILY duloxetine 20 mg capsule,delayed release(DR/EC) 20 mg PO BID Qty: 180 1RF cyclobenzaprine 10 mg tablet 10 mg PO BEDTIME 0RF leflunomide 20 mg tablet PO DAILY 0RF gabapentin 300 mg capsule 300 mg PO BID 0RF oxycodone 30 mg tablet 30 mg PO DAILY PRN (Reason: pain) 0RF Label Comments: Take one tablet BY MOUTH THREE TIMES DAILY NEEDED pain. DO not dispense UNTIL 01-04-21 Referrals: Dotty Ferguson DO [Primary Care Provider] - <Kane Sharma DO - Last Filed: 02/19/21 17:28> Cosign ED Attending Cosignature Attestation: Dr Sharma Co-Sign Statement: I was available for consultation during this patient's emergency department visit. This chart is signed by myself for administrative purposes only. I did not have direct contact with this patient during this visit. They were seen independently by the APC.
== END 2021-02-19 13:36 | disposition home or self-care (01) ==
PROVIDERS: Emergency Provider Physician Assistant; PCP Family Medicine
DX: K02.9 Dental caries, unspecified (principal); Z87.891 Personal history of nicotine dependence
CPT/HCPCS: 99281

== ENCOUNTER → 2022-05-17 09:55 | Outpatient (CLI) | payer OTHER, SELFPAY ==
[2022-05-17 11:15] LABS: Add Manual Diff / Slide Review NO; Basophils Absolute Auto 0 /uL (0-100); Basophils Percent Auto 1.2 % (0-2); Eosinophils Absolute Auto 200 /uL (0-450); Hematocrit 37.1 % (36-46); Hemoglobin 12.1 g/dL (12.0-16.0); Lymphocytes Absolute Auto 1100 /uL (1100-4500); Lymphocytes Percent Auto 29.4 % (25-40); Mean Corpuscular HGB Conc 32.7 % (30-36); Mean Corpuscular Hemoglobin 26.9 PG (26-34); Mean Corpuscular Volume 82.2 fL (80-100); Monocytes Absolute Auto 600 /uL (0-900); Monocytes Percent Auto 17.1 % (3-14); Neutrophils Absolute Auto 1700 /uL (1500-7000); Neutrophils Percent Auto 47.3 % (50-75); Platelet Count 214 X10^3/uL (150-400); Red Blood Cell Count 4.51 X10^6/uL (4.0-5.2); Red Cell Distribution Width 14.7 % (11.6-14.8); White Blood Cell Count 3.7 X10^3/uL (4.5-11.0)
[2022-05-17 11:48] LABS: Alanine Aminotransferase 15 IU/L (<35); Albumin 4.4 g/dL (3.5-5.0); Albumin Globulin Ratio 1.2 (1.0-2.8); Alkaline Phosphatase 80 U/L (38-126); Aspartate Aminotransferase 25 IU/L (14-36); BUN Creatinine Ratio 17.9 (6-22); Bilirubin Total 0.5 mg/dL (0.2-1.3); Blood Urea Nitrogen 10 mg/dL (7-17); Calcium 8.9 mg/dL (8.4-10.2); Carbon Dioxide 30 mmol/L (22-32); Chloride 94 mmol/L (98-107); Cholesterol 193 mg/dL (140-199); Estimated Glomerular Filt Rate > 60 mL/min (>60); Globulin 3.6 g/dL (1.7-4.1); Glucose 85 mg/dL (70-100); HDL Cholesterol 38 mg/dL (40-60); HEMOLYSIS 20 (0-50); LDL Cholesterol Calculated 118 mg/dL (<100); Potassium 3.4 mmol/L (3.4-5.1); Sodium 135 mmol/L (137-145); Triglycerides 183 mg/dL (35-150)
[2022-05-17 12:17] LABS: TSH w/ Reflex to FT4 1.06 uIU/mL (0.47-4.68)
== END ==
PROVIDERS: PCP Family Medicine; Referring Provider Family Medicine; Visit Provider Family Medicine
DX: I10 Essential (primary) hypertension (principal)
CPT/HCPCS: 36415; 80053; 80061; 84443; 85025

== ENCOUNTER → 2023-12-10 14:09 | Outpatient (CLI) | payer OTHER, SELFPAY ==
[2023-12-10 14:55] LABS: Add Manual Diff / Slide Review NO; Basophils Absolute Auto 0 /uL (0-100); Basophils Percent Auto 0.9 % (0-2); Eosinophils Absolute Auto 400 /uL (0-450); Eosinophils Percent Auto 8.2 % (2-4); Hematocrit 35.1 % (36-46); Hemoglobin 11.9 g/dL (12.0-16.0); Lymphocytes Absolute Auto 900 /uL (1100-4500); Lymphocytes Percent Auto 19.7 % (25-40); Mean Corpuscular HGB Conc 33.9 % (30-36); Mean Corpuscular Hemoglobin 29.2 PG (26-34); Mean Corpuscular Volume 85.9 fL (80-100); Monocytes Absolute Auto 400 /uL (0-900); Monocytes Percent Auto 8.2 % (3-14); Neutrophils Absolute Auto 3000 /uL (1500-7000); Platelet Count 224 X10^3/uL (150-400); Red Blood Cell Count 4.09 X10^6/uL (4.0-5.2); Red Cell Distribution Width 13.9 % (11.6-14.8); White Blood Cell Count 4.8 X10^3/uL (4.5-11.0)
[2023-12-10 15:39] LABS: Erythrocyte Sedimentation Rate 11 MM/HR (0-20)
[2023-12-10 15:43] LABS: Alanine Aminotransferase 22 IU/L (<35); Albumin Globulin Ratio 1.5 (1.0-2.8); Alkaline Phosphatase 56 U/L (38-126); Aspartate Aminotransferase 26 IU/L (14-36); BUN Creatinine Ratio 26.6 (6-22); Bilirubin Total 0.5 mg/dL (0.2-1.3); Blood Urea Nitrogen 17 mg/dL (7-17); Carbon Dioxide 30 mmol/L (22-32); Chloride 98 mmol/L (98-107); Cholesterol 149 mg/dL (140-199); Estimated Glomerular Filt Rate > 60 mL/min (>60); Globulin 2.6 g/dL (1.7-4.1); Glucose 155 mg/dL (70-100); HDL Cholesterol 52 mg/dL (40-60); HEMOLYSIS < 15 (0-50); LDL Cholesterol Calculated 77 mg/dL (<100); Potassium 4.4 mmol/L (3.4-5.1); Sodium 133 mmol/L (137-145); Total Protein 6.6 g/dL (6.3-8.2); Triglycerides 98 mg/dL (35-150)
[2023-12-10 16:11] LABS: Appearance Urine UA SL CLOUDY; Bilirubin Urine UA NEGATIVE (NEGATIVE); Color Urine UA YELLOW; Glucose Urine UA NEGATIVE (Negative); Ketones Urine UA NEGATIVE (NEGATIVE); Leukocyte Esterase Urine UA NEGATIVE (NEGATIVE); Nitrite Urine UA NEGATIVE (Negative); Occult Blood Urine UA NEGATIVE (Negative); Protein Urine UA NEGATIVE (Negative)
[2023-12-10 16:16] LABS: pH Urine UA 7.5 (4.5-8.0)
[2023-12-10 16:23] LABS: Amorphous Sediment Urine 1+; Bacteria Urine None Seen; Culture Indicated Urine Cult Not Indicated; RBC Urine None Seen (0-5/HPF); Squamous Epithelial Cell Urine 0-1 /HPF (0-5/HPF); Urine Volume 10mL (spun); WBC Urine None Seen (0-5/HPF)
[2023-12-12 06:58] LABS: C-Reactive Protein Quant < 0.5 mg/dL (<1.0)
== END ==
LOC: LAB 14:09
PROVIDERS: PCP Family Medicine; Referring Provider Family Medicine; Visit Provider Family Medicine
DX: M06.9 Rheumatoid arthritis, unspecified (principal); R06.02 Shortness of breath; I10 Essential (primary) hypertension; Z13.220 Encounter for screening for lipoid disorders
CPT/HCPCS: 36415; 80053; 80061; 81001; 85025; 85651; 86140

== ENCOUNTER → 2023-12-12 10:38 | Outpatient (CLI) | payer OTHER, SELFPAY ==
--- NOTE | 2023-12-12 10:39 | DI.CT.S_ITS ---
PROCEDURE: CT LUNG LOW DOSE SCREENING INDICATIONS: screening TECHNIQUE: Noncontrast 2.0-2.5 mm thick sections acquired from the pulmonary apices to the posterior costophrenic angles. 7 mm thick axial MIP, and 5 mm coronal and sagittal reformats were then acquired. For radiation dose reduction, the following was used: automated exposure control, adjustment of mA and/or kV according to patient size. COMPARISON: [facility], CT, CT CHEST ABDOMEN PELVIS WITH CONTRAST, 11/07/2018, 14:45. FINDINGS: Image quality: Diagnostic. Lower Neck: No enlarged lymph nodes. Thyroid: No thyroid nodules which require sonographic follow up, per consensus guidelines. Axillae: No enlarged lymph nodes. Chest Wall: Unremarkable. Bones: Unremarkable. Lungs and Pleura: No pneumothorax or pleural effusions. No focal consolidation. No new suspicious or enlarging pulmonary nodules. A few tiny punctate calcified nodules likely sequela of remote granulomatous disease. Heart: Heart size is normal. No pericardial effusion. Coronary atherosclerotic vascular calcifications are noted. Thoracic Vessels: The aorta and pulmonary arteries demonstrate normal size. Mediastinum and Yudi: No enlarged lymph nodes. Esophagus: No wall thickening. No hiatal hernia. Upper Abdomen: Visualized upper abdomen solid organs and bowel loops appear normal. IMPRESSION: No suspicious pulmonary nodules. LUNG-RADS 2; continued annual screening, if eligible. Clinically Significant Non-pulmonary Findings: Atherosclerotic vascular calcifications. Dictated by: Robert Richards M.D. on 12/12/2023 at 17:27 Approved by: Robert Richards M.D. on 12/12/2023 at 17:35
== END ==
LOC: CT 10:38
PROVIDERS: PCP Family Medicine; Referring Provider Family Medicine; Visit Provider Family Medicine
DX: Z12.2 Encounter for screening for malignant neoplasm of respiratory organs (principal); R06.02 Shortness of breath; Z79.1 Long term (current) use of non-steroidal anti-inflammatories (NSAID)
CPT/HCPCS: 71271

== ENCOUNTER 2024-01-31 15:10 | Emergency (ER) | payer OTHER, SELFPAY ==
[2024-01-31 15:15] VITALS: BP 162/92; PULSE 103; RESP 24; TEMP 36.4; O2SAT 96; BMI 21.2
--- NOTE | 2024-01-31 15:25 | DI.CT.S_ITS ---
PROCEDURE: CT ANGIO CHEST PE PROTOCOL INDICATIONS: sob; hx of PE TECHNIQUE: After the administration of intravenous contrast, 2 mm thick sections acquired from the pulmonary apices to the posterior costophrenic angles. 3-dimensional maximum intensity projection (MIP) coronal and sagittal reformats were then acquired through the thorax. For radiation dose reduction, the following was used: automated exposure control, adjustment of mA and/or kV according to patient size. COMPARISON: [facility], CT, CT LUNG LOW DOSE SCREENING, 12/12/2023, 10:52. FINDINGS: Image quality: Diagnostic. Pulmonary arteries: Pulmonary arteries are normal in size, and demonstrate no intraluminal filling defects to suggest central pulmonary embolism. Lower Neck: No enlarged lymph nodes. Thyroid: No thyroid nodules which require sonographic follow up, per consensus guidelines. Axillae: No enlarged lymph nodes. Chest Wall: Unremarkable. Bones: Unremarkable. Lungs and Pleura: No pneumothorax or pleural effusions. Small calcified granuloma at the left lung base. No consolidation or suspicious nodules. Heart: Heart size is normal. No pericardial effusion. Thoracic Vessels: No aortic aneurysm. Mediastinum and Yudi: No enlarged lymph nodes. Esophagus: No wall thickening. No hiatal hernia. Upper Abdomen: Bilateral renal cysts. Visualized upper abdomen solid organs and bowel loops appear normal. IMPRESSION: No pulmonary embolus. no acute cardiopulmonary abnormality. Approved by: Shahbaz Renee M.D. on 01/31/2024 at 16:28
[2024-01-31 16:26] LABS: Add Manual Diff / Slide Review NO; Basophils Absolute Auto 0 /uL (0-100); Basophils Percent Auto 0.4 % (0-2); Eosinophils Absolute Auto 500 /uL (0-450); Eosinophils Percent Auto 10.2 % (2-4); Lymphocytes Absolute Auto 900 /uL (1100-4500); Lymphocytes Percent Auto 20.1 % (25-40); Mean Corpuscular HGB Conc 33.5 % (30-36); Mean Corpuscular Hemoglobin 28.9 PG (26-34); Mean Corpuscular Volume 86.4 fL (80-100); Monocytes Absolute Auto 400 /uL (0-900); Monocytes Percent Auto 9.6 % (3-14); Neutrophils Absolute Auto 2700 /uL (1500-7000); Neutrophils Percent Auto 59.7 % (50-75); Platelet Count 235 X10^3/uL (150-400); Red Blood Cell Count 4.51 X10^6/uL (4.0-5.2); Red Cell Distribution Width 13.7 % (11.6-14.8); White Blood Cell Count 4.4 X10^3/uL (4.5-11.0)
--- NOTE | 2024-01-31 16:46 | EKG_ITS ---
[facility] [address] [address] Test Date: 2024-01-31 Pat Name: Ines Martinez Department: [facility] Room: Gender: Female Sales Project Administrator: : [id number] Requested By: Order Number: [id number] Reading MD: Steve Mccollum MD Measurements Intervals [place] Rate: 77 P: 30 FL: 126 QRS: 31 QRSD: 94 T: 19 QT: 400 QTc: 452 Interpretive Statements Normal sinus rhythm Electronically Signed On 01-31-2024 17:43:13 PST by Steve Mccollum MD
[2024-01-31 16:53] LABS: INR 1.3 (0.9-1.3); Prothrombin Time 14.3 SECONDS (9.4-12.5)
[2024-01-31 16:57] LABS: Creatine Kinase 57 U/L (30-135); Estimated Glomerular Filt Rate > 60 mL/min (>60); Lactate (Lactic Acid) 0.9 mmol/L (0.7-2.1); Lipase 23 U/L (23-300); Magnesium 1.9 mg/dL (1.6-2.3)
[2024-01-31 17:09] LABS: Troponin I < 0.012 ng/mL (0.01-0.034)
[2024-01-31 17:36] LABS: Alanine Aminotransferase 17 IU/L (<35); Albumin 4.5 g/dL (3.5-5.0); Albumin Globulin Ratio 1.5 (1.0-2.8); Alkaline Phosphatase 66 U/L (38-126); BUN Creatinine Ratio 20.6 (6-22); Bilirubin Total 0.8 mg/dL (0.2-1.3); Blood Urea Nitrogen 14 mg/dL (7-17); Calcium 9.1 mg/dL (8.4-10.2); Carbon Dioxide 25 mmol/L (22-32); Chloride 102 mmol/L (98-107); Estimated Glomerular Filt Rate > 60 mL/min (>60); Globulin 3.1 g/dL (1.7-4.1); Glucose 102 mg/dL (70-100); Sodium 137 mmol/L (137-145); Total Protein 7.6 g/dL (6.3-8.2)
[2024-01-31 17:37] LABS: HEMOLYSIS 73 (0-50)
[2024-01-31 17:38] VITALS: O2SAT 87
[2024-01-31 17:38] LABS: Aspartate Aminotransferase 49 IU/L (14-36); Potassium 4.7 mmol/L (3.4-5.1)
[2024-01-31 17:39] VITALS: BP 138/63; PULSE 62; O2SAT 90
[2024-01-31 17:48] LABS: NT-proBNP (BNP-Adult 18+) 121 pg/mL (<125)
[2024-01-31 18:00] VITALS: BP 142/76; PULSE 63; O2SAT 89
--- NOTE | 2024-01-31 18:27 | ED_ITS ---
HPI - General Adult General Chief complaint: Shortness of Breath/Dyspnea Stated complaint: sob, sent by dr quinones about PE Time Seen by Provider: 01/31/24 18:03 Source: patient Mode of arrival: Ambulatory History of Present Illness HPI narrative: Patient is a 58-year-old female. Has a history of pulmonary embolisms many years ago. She was not currently on any anticoagulation. She reports she has had intermittent shortness of breath over the past month. She has a an appointment to see her primary doctor however when she talked with her primary doctor about her symptoms there was concerns that she potentially could have another pulmonary embolism. She denies chest pain. No lower extremity swelling. Does have a cough with the shortness of breath. It is nonproductive. No sinus congestion. She also states she was having symptoms that are consistent with a urinary tract infection. Symptoms started yesterday. Is having quite a bit of dysuria and frequency. Related Data Home Medications Medication Instructions Recorded Confirmed buprenorphine HCl 8 mg sublingual 8 mg sublingual QID 07/24/17 01/02/24 tablet cyclobenzaprine 10 mg tablet 10 mg PO BEDTIME 11/12/19 01/02/24 gabapentin 300 mg capsule 300 mg PO BID 01/17/21 01/02/24 ibuprofen 200 mg tablet 800 mg PO .QDAY 05/24/22 01/02/24 Previous Rx's Medication Instructions Recorded omeprazole 20 mg capsule,delayed 20 mg PO DAILY History of ulcers 05/24/22 release #90 caps duloxetine 20 mg capsule,delayed 60 mg (3 x 20 mg) PO DAILY #270 07/19/22 release caps varenicline 0.5 mg (11)-1 mg (42) See Rx Instructions PO PER PKG DIR 12/07/23 tablets in a dose pack ([employer] #53 ea Starting Month Box) albuterol sulfate 90 mcg/actuation 2 puff inhalation Q6H PRN 01/02/24 aerosol inhaler shortness of breath or wheezing #6.7 grams lisinopril 5 mg tablet 10 mg (2 x 5 mg) PO DAILY #90 tabs 01/07/24 cephalexin 500 mg capsule 500 mg PO BID 5 days #10 caps 01/31/24 Allergies Allergy/AdvReac Type Severity Reaction Status Date / Time pregabalin [PREGABALIN] AdvReac Severe BLOOD CLOT Verified 01/02/24 10:18 IN LUNG AND LEG Review of Systems Review of Systems Narrative: See HPI Patient History Medical History Sweet syndrome Shortness of breath Tobacco use Cervicogenic headache Cervical radiculopathy HNP (herniated nucleus pulposus), cervical Essential hypertension Hx pulmonary embolism (~1987) Migraines (Unknown) Anxiety (Unknown) Depression (Unknown) Fibromyalgia (Unknown) Osteoarthritis (Unknown) Recurrent sinusitis (Unknown) Fractures (1985) Chronic back pain (Unknown) Rheumatoid arthritis (Unknown) Surgical History History of surgery on arm (~1982) History of left knee surgery (~1981) History of back surgery (~1999) Family History Mother Hypertension Grandfather Diabetes mellitus Grandmother No problems noted. Social History marital status: number of children: 3 education level: college seatbelt use: always Smoking Status: Former smoker Tobacco: How many years used: 30 alcohol intake: former substance use type: does not use Type(s) of exercise: none Smoking Status: Former smoker Substance Use Type: does not use Exam Initial Vital Signs Initial Vital Signs: Vital Signs Temperature 97.5 F L 01/31/24 15:15 Pulse Rate 103 H 01/31/24 15:15 Respiratory Rate 24 01/31/24 15:15 Blood Pressure 162/92 H 01/31/24 15:15 Pulse Oximetry 96 01/31/24 15:15 Oxygen Delivery Method Room Air 01/31/24 15:15 Const General: cooperative, comfortable and No ill appearing HENMT Head: normal to inspection and normocephalic Resp Effort & Inspection: normal respiratory effort, no cough, not labored and not tachypneic Auscultation: wheezes Cardio Rate: regular rate Rhythm: regular rhythm GI Inspection: normal to inspection and non-distended Skin General: no rashes or lesions noted Neuro General: patient alert, patient awake and moves all extremities Course Orders Ordered: ED Orders 01/31/24 16:12 Complete Blood Count AUTO DIFF Stat Comprehensive Metabolic Panel Stat Creatinine & eGFR Stat Lactate (Lactic Acid) Stat Lipase Stat Magnesium Stat NT-proBNP (BNP-Adult 18+) Stat Prothrombin Time INR Stat Troponin & CK Cardiac Panel Stat 01/31/24 17:00 PTT Partial Thromboplastin Pancho Stat Discontinued Medications Albuterol (Albuterol 2.5 Mg/3 Ml Neb (Adult)) 2.5 mg INH NOW ONE Stop: 01/31/24 18:28 Last Admin: 01/31/24 18:42 Dose: 2.5 mg Documented By: Aspirin (Aspirin 81 Mg Chew Tab) 324 mg PO NOW ONE Stop: 01/31/24 15:27 Last Admin: 01/31/24 18:44 Dose: Not Given Documented By: NAILA Cephalexin HCl (Cephalexin 250 Mg Capsule) 500 mg PO NOW ONE Stop: 01/31/24 18:28 Last Admin: 01/31/24 18:44 Dose: 500 mg Documented By: NAILA Vital Signs Vital signs: Vital Signs - 8 hr 01/31/24 17:38 01/31/24 17:39 01/31/24 17:39 Pulse Rate 62 Blood Pressure 138/63 Pulse Oximetry 87 L 90 L 01/31/24 18:00 01/31/24 18:00 01/31/24 18:30 Pulse Rate 63 80 Blood Pressure 142/76 H Pulse Oximetry 89 L 90 L 01/31/24 18:30 01/31/24 19:09 01/31/24 19:09 Pulse Rate 49 L Blood Pressure 147/94 H 155/83 H Pulse Oximetry 96 Medical Decision Making Lab Data Lab results reviewed: Yes I reviewed the patient's lab results. 01/31/24 16:12 01/31/24 16:12 Labs: Lab Results 01/31/24 01/31/24 01/31/24 Range/Units 16:12 16:12 16:12 WBC 4.4 L (4.5-11.0) X10^3/uL RBC 4.51 (4.0-5.2) X10^6/uL Hgb 13.0 (12.0-16.0) g/dL Hct 39.0 (36-46) % MCV 86.4 (80-100) fL MCH 28.9 (26-34) PG MCHC 33.5 (30-36) % RDW 13.7 (11.6-14.8) % Plt Count 235 (150-400) X10^3/uL Neut % (Auto) 59.7 (50-75) % Lymph % (Auto) 20.1 L (25-40) % [place] % (Auto) 9.6 (3-14) % Eos % (Auto) 10.2 H (2-4) % Baso % (Auto) 0.4 (0-2) % Neut # (Auto) 2700 (1680-8347) /uL Lymph # (Auto) 900 L (6665-4938) /uL [place] # (Auto) 400 (0-900) /uL Eos # (Auto) 500 H (0-450) /uL Baso # (Auto) 0 (0-100) /uL PT 14.3 H (9.4-12.5) SECONDS INR 1.3 (0.9-1.3) APTT (25.1-36.5) SECONDS Sodium 137 (137-145) mmol/L Potassium 4.7 (3.4-5.1) mmol/L Chloride 102 (98-107) mmol/L Carbon Dioxide 25 (22-32) mmol/L BUN 14 (7-17) mg/dL Creatinine 0.68 0.68 (0.52-1.04) mg/dL Estimated GFR > 60 > 60 (>60) mL/min BUN/Creatinine Ratio 20.6 (6-22) Glucose 102 H (70-100) mg/dL Lactate 0.9 (0.7-2.1) mmol/L Calcium 9.1 (8.4-10.2) mg/dL Magnesium 1.9 (1.6-2.3) mg/dL Total Bilirubin 0.8 (0.2-1.3) mg/dL AST 49 H (14-36) IU/L ALT 17 (<35) IU/L Alkaline Phosphatase 66 (38-126) U/L Total Creatine Kinase 57 (30-135) U/L Troponin I Cancelled NT-Pro-B Natriuret Pep (<125) pg/mL Total Protein (6.3-8.2) g/dL Albumin (3.5-5.0) g/dL Globulin (1.7-4.1) g/dL Albumin/Globulin Ratio (1.0-2.8) Lipase (23-300) U/L 01/31/24 01/31/24 Range/Units 16:12 17:00 WBC (4.5-11.0) X10^3/uL RBC (4.0-5.2) X10^6/uL Hgb (12.0-16.0) g/dL Hct (36-46) % MCV (80-100) fL MCH (26-34) PG MCHC (30-36) % RDW (11.6-14.8) % Plt Count (150-400) X10^3/uL Neut % (Auto) (50-75) % Lymph % (Auto) (25-40) % [place] % (Auto) (3-14) % Eos % (Auto) (2-4) % Baso % (Auto) (0-2) % Neut # (Auto) (7160-8228) /uL Lymph # (Auto) (7705-5516) /uL [place] # (Auto) (0-900) /uL Eos # (Auto) (0-450) /uL Baso # (Auto) (0-100) /uL PT (9.4-12.5) SECONDS INR (0.9-1.3) APTT 37 H (25.1-36.5) SECONDS Sodium (137-145) mmol/L Potassium (3.4-5.1) mmol/L Chloride (98-107) mmol/L Carbon Dioxide (22-32) mmol/L BUN (7-17) mg/dL Creatinine (0.52-1.04) mg/dL Estimated GFR (>60) mL/min BUN/Creatinine Ratio (6-22) Glucose (70-100) mg/dL Lactate (0.7-2.1) mmol/L Calcium (8.4-10.2) mg/dL Magnesium (1.6-2.3) mg/dL Total Bilirubin (0.2-1.3) mg/dL AST (14-36) IU/L ALT (<35) IU/L Alkaline Phosphatase (38-126) U/L Total Creatine Kinase (30-135) U/L Troponin I < 0.012 NT-Pro-B Natriuret Pep 121 (<125) pg/mL Total Protein 7.6 (6.3-8.2) g/dL Albumin 4.5 (3.5-5.0) g/dL Globulin 3.1 (1.7-4.1) g/dL Albumin/Globulin Ratio 1.5 (1.0-2.8) Lipase 23 (23-300) U/L Imaging Data CT scan - chest: Radiologist's Impression: PROCEDURE: CT ANGIO CHEST PE PROTOCOL INDICATIONS: sob; hx of PE TECHNIQUE: After the administration of intravenous contrast, 2 mm thick sections acquired from the pulmonary apices to the posterior costophrenic angles. 3-dimensional maximum intensity projection (MIP) coronal and sagittal reformats were then acquired through the thorax. For radiation dose reduction, the following was used: automated exposure control, adjustment of mA and/or kV according to patient size. COMPARISON: [facility], CT, CT LUNG LOW DOSE SCREENING, 12/12/2023, 10:52. FINDINGS: Image quality: Diagnostic. Pulmonary arteries: Pulmonary arteries are normal in size, and demonstrate no intraluminal filling defects to suggest central pulmonary embolism. Lower Neck: No enlarged lymph nodes. Thyroid: No thyroid nodules which require sonographic follow up, per consensus guidelines. Axillae: No enlarged lymph nodes. Chest Wall: Unremarkable. Bones: Unremarkable. Lungs and Pleura: No pneumothorax or pleural effusions. Small calcified granuloma at the left lung base. No consolidation or suspicious nodules. Heart: Heart size is normal. No pericardial effusion. Thoracic Vessels: No aortic aneurysm. Mediastinum and Yudi: No enlarged lymph nodes. Esophagus: No wall thickening. No hiatal hernia. Upper Abdomen: Bilateral renal cysts. Visualized upper abdomen solid organs and bowel loops appear normal. IMPRESSION: No pulmonary embolus. no acute cardiopulmonary abnormality. ECG Data Attestation: I personally reviewed and interpreted this ECG as follows: Interpretation: Sinus rhythm Ventricular rate is 77 Normal axis Normal QRS Normal QTC No ST T wave changes MDM Narrative Medical decision making narrative: CT scan today does not show any signs of pulmonary embolism or pneumonia upon my initial evaluation she did have diffuse bilateral wheezing. She was given a nebulizer treatment and she does report that she has improvement of symptoms. I recommended that she talk with her primary doctor tomorrow about the wheezing that she was having as she potentially may need further evaluation and maybe even home inhalers. Will also treat her for her symptomatic urinary tract infection. First dose of antibiotics given here in the emergency department. She was given return precautions follow-up instructions. She expressed understanding and agreement with the plan. Discharge Plan Departure Patient Disposition: Home Clinical Impression: UTI (urinary tract infection), Shortness of breath Instructions: DI for Urinary Tract Infection (UTI) Activity Restrictions/Additional Instructions: Take the antibiotics as directed. Keep your scheduled appointment with your primary doctor scheduled for tomorrow. Return to the emergency department for new or worsening symptoms. Prescriptions: New cephalexin 500 mg capsule 500 mg PO BID 5 Days Qty: 10 0RF No Action buprenorphine HCl 8 mg tablet, sublingual 8 mg SL QID albuterol sulfate 90 mcg/actuation HFA aerosol inhaler 2 puff inhalation Q6H PRN (Reason: shortness of breath or wheezing) Qty: 6.7 0RF ibuprofen 200 mg tablet 800 mg PO .QDAY omeprazole 20 mg capsule,delayed release(DR/EC) 20 mg PO DAILY Qty: 90 3RF Rx Instructions: Take one capsule once daily when using IBUPROFEN due to history of gastric ulcer varenicline [[employer] Starting Month Box] 0.5 mg (11)- 1 mg (42) tablets,dose pack See Rx Instructions PO PER PKG DIR Qty: 53 0RF Rx Instructions: PO PER PKG DIR duloxetine 20 mg capsule,delayed release(DR/EC) 60 mg PO DAILY Qty: 270 1RF Rx Instructions: THERE HAS BEEN A DOSE CHANGE, PLEASE FILL THIS PRESCRIPTION FOR PATIENT lisinopril 5 mg tablet 10 mg PO DAILY Qty: 90 0RF Rx Instructions: Start with 10mg daily, after 1 week if BP still elevated, increase to 3 tabs (15mg) daily cyclobenzaprine 10 mg tablet 10 mg PO BEDTIME gabapentin 300 mg capsule 300 mg PO BID Referrals: Raya Gray MD [Primary Care Provider] - Stand Alone Forms: Patient Portal/API/Survey
[2024-01-31 18:30] VITALS: BP 147/94; PULSE 80; O2SAT 90
[2024-01-31] MEDS: ALBUTEROL 2.5 MG/3 ML NEB (ADULT) INH (18:42)
[2024-01-31 18:44] LABS: PTT Partial Thromboplastin Tim 37 SECONDS (25.1-36.5)
[2024-01-31] MEDS: cephALEXin 250 MG CAPSULE 500 MG PO (18:44)
[2024-01-31 19:09] VITALS: BP 155/83; PULSE 49; O2SAT 96
== END 2024-01-31 19:20 | disposition home or self-care (01) ==
PROVIDERS: Emergency Medicine; Emergency Provider Emergency Medicine; PCP Family Medicine
DX: N39.0 Urinary tract infection, site not specified (principal); R06.02 Shortness of breath
CPT/HCPCS: 71275; 80053; 82550; 82565; 83605; 83690; 83735; 83880; 84484; 85025; 85610; 85730; 93005; 93010; 94640; 99283; 99284; J7613

== ENCOUNTER → 2024-03-13 06:36 | Outpatient (CLI) | payer OTHER, SELFPAY | LOC: RESP 06:37 | PROVIDERS: PCP Family Medicine; Referring Provider Family Medicine; Visit Provider Family Medicine | DX: R06.02 Shortness of breath (principal); Z87.891 Personal history of nicotine dependence; R94.2 Abnormal results of pulmonary function studies | CPT/HCPCS: 94060; 94726; 94729 ==